=== PATIENT | female | born 1945 | race Caucasian/White ===

== ENCOUNTER 2020-07-04 13:59 | Day surgery (SDC) | payer MEDICARE, OTHER ==
[2020-07-04] MEDS ORDERED: ATEN25 PO (16:53)
[2020-07-04] MEDS ORDERED: AMLO5 PO (16:53)
[2020-07-04] MEDS ORDERED: CLOP75 PO (16:53)
[2020-07-04] MEDS ORDERED: EUTHYROX50 MCG PO (16:54)
[2020-07-04] MEDS ORDERED: HYDR1TAB94 PO (16:54)
[2020-07-04] MEDS ORDERED: ASPI81CH PO (16:54)
[2020-07-04] MEDS ORDERED: BUPR100ER PO (16:54)
[2020-07-04] MEDS ORDERED: PANT20 PO (16:55)
== END 2020-07-04 16:15 | disposition home or self-care (01) ==
LOC: ATC 13:59
DX: D50.0 Iron deficiency anemia secondary to blood loss (chronic) (principal); I73.9 Peripheral vascular disease, unspecified; I10 Essential (primary) hypertension; F17.210 Nicotine dependence, cigarettes, uncomplicated; Z95.828 Presence of other vascular implants and grafts; Z79.02 Long term (current) use of antithrombotics/antiplatelets; Z79.82 Long term (current) use of aspirin; Z86.73 Personal history of transient ischemic attack (TIA), and cerebral infarction without residual deficits; Z90.710 Acquired absence of both cervix and uterus; Z85.528 Personal history of other malignant neoplasm of kidney
CPT/HCPCS: 96365; J2916

== ENCOUNTER 2020-07-11 00:21 | Day surgery (SDC) | payer MEDICARE, OTHER ==
[~2020-07-11 00:21] MED LIST: AMLO5 PO; ASPI81CH PO; ATEN25 PO; BUPR100ER PO; CLOP75 PO; EUTHYROX50 MCG PO; HYDR1TAB94 PO; PANT20 PO
== END 2020-07-11 15:47 | disposition home or self-care (01) ==
LOC: ATC 00:21
DX: D50.0 Iron deficiency anemia secondary to blood loss (chronic) (principal); I10 Essential (primary) hypertension; F17.210 Nicotine dependence, cigarettes, uncomplicated; Z79.82 Long term (current) use of aspirin; Z86.73 Personal history of transient ischemic attack (TIA), and cerebral infarction without residual deficits
CPT/HCPCS: 96365; J2916

== ENCOUNTER 2020-07-16 01:01 | Day surgery (SDC) | payer MEDICARE, OTHER ==
--- NOTE | 2020-07-16 12:13 | NUR ---
1056 PT STATES THAT AFTER 2 PRIOR INFUSIONS SHE HAS HAD SOB WITH EXERTION AND DIZZYNESS APPROX. 2 DAY POST INFUSION THAT LAST APPROX 1 DAY. CALLED AND SPOKE WITH GAUTAM LEE NP. HE STATES TO PROCEDE WITH INFUSION BUT TO SLOW THE RATE AND INFUSE OVER 90 MINUTES.
== END 2020-07-16 12:33 | disposition home or self-care (01) ==
LOC: ATC 01:01
DX: D50.0 Iron deficiency anemia secondary to blood loss (chronic) (principal); I10 Essential (primary) hypertension; F17.200 Nicotine dependence, unspecified, uncomplicated; Z86.73 Personal history of transient ischemic attack (TIA), and cerebral infarction without residual deficits; Z79.82 Long term (current) use of aspirin
CPT/HCPCS: 96365; J2916

== ENCOUNTER 2020-07-18 00:07 | Day surgery (SDC) | payer MEDICARE, OTHER | END 2020-07-18 11:45 | disposition home or self-care (01) | LOC: ATC 00:07 | DX: D50.0 Iron deficiency anemia secondary to blood loss (chronic) (principal); I10 Essential (primary) hypertension; F17.200 Nicotine dependence, unspecified, uncomplicated; Z86.73 Personal history of transient ischemic attack (TIA), and cerebral infarction without residual deficits; Z90.710 Acquired absence of both cervix and uterus; Z79.82 Long term (current) use of aspirin; Z79.899 Other long term (current) drug therapy | CPT/HCPCS: 96365; J2916 ==

== ENCOUNTER 2020-07-23 00:29 | Day surgery (SDC) | payer MEDICARE, OTHER | END 2020-07-23 23:06 | disposition home or self-care (01) | LOC: ATC 00:29 | DX: D50.0 Iron deficiency anemia secondary to blood loss (chronic) (principal); I10 Essential (primary) hypertension; Z86.73 Personal history of transient ischemic attack (TIA), and cerebral infarction without residual deficits; Z90.710 Acquired absence of both cervix and uterus | CPT/HCPCS: J2916 ==